=== PATIENT | male | born 1960 | race African-American/Black ===

== ENCOUNTER 2017-01-05 12:31 | Emergency (ER) | payer OTHER ==
[~2017-01-05] VITALS: Ht 190.5 cm; Wt 80.0 kg
[~2017-01-05 12:31] MED LIST: ASPI81TA3 PO; CARV25TA79 PO; HYDR-3672 PO; LINA5TAB PO; ONDA4TAB8 PO
[2017-01-05 12:34] VITALS: Ht 190.5 cm; Wt 80.0 kg
[2017-01-05] MEDS ORDERED: ONDANSETRON (ODT) 4 MG TAB ODT STA (15:10)
[2017-01-05] MEDS ORDERED: IBUPROFEN 600 MG TAB PO ONE (15:30)
--- NOTE | 2017-01-05 15:51 | RADRPT ---
PROCEDURE: XR Left Scapula CLINICAL INDICATION: Pain after fall TECHNIQUE: An AP and a lateral view of the left scapula were submitted. COMPARISON: None FINDINGS: Osseous structures: appear well mineralized and intact with no fracture or destructive process iden tified. Moderate degenerative thoracic spine changes are noted. Joint spaces: The glenohumeral joint appears unremarkable. The AC joint appears normal. Soft tissues: appear unremarkable. IMPRESSION: 1. Unremarkable left scapula 2. Moderate degenerative thoracic spine changes are noted. Physician Beltran Date Time Electronically viewed and signed by Nelson Ag Physician on 01/05/2017 15:51 RH/
--- NOTE | 2017-01-05 15:53 | RADRPT ---
PROCEDURE: XR Chest AP portable CLINICAL INDICATION: Pain after fall TECHNIQUE: An AP portable radiograph of the chest was submitted. COMPARISON: 06/03/2016 FINDINGS: Support Hardware: None Cardiovascular: The cardiovascular silhouette appears unremarkable. Lung Grant: The lung grant appear clear with no nodule, alveolar infiltrate, or interstitial promi nence evident. Pleural Spaces: No pneumothorax or pleural effusion is identified. Osseous Structures: Moderate diffuse degenerative thoracic spine changes are noted. Soft Tissues: The soft tissues appear unremarkable. IMPRESSION: 1. Degenerative thoracic spine changes are again seen diffusely. 2. Otherwise, stable and unremarkable portable chest. Physician Beltran Date Time Electronically viewed and signed by Physician Beltran on 01/05/2017 15:52 /
[2017-01-05] MEDS ORDERED: IBUP-1542 PO (16:22)
[2017-01-05] MEDS ORDERED: ONDA-43 PO (16:22)
[2017-01-05] MEDS ORDERED: HYDR-842 PO (16:23)
--- NOTE | 2017-01-05 16:30 | ERD ---
ER Documentation Chief Complaint Date/Time DATE: 01/05/17 TIME: 16:26 Chief Complaint VOMITTING, DENIES ABD PAIN; BACK PAIN- FELL 2 DAYS AGO HPI This is a 56-year-old male presents to the ER with multiple complaints. Patient states that he has had nausea vomiting and diarrhea since yesterday. Vomiting is nonbilious nonbloody. He is also complaining of insomnia. Patient fell onto his back 2 days ago and hurt his upper back. He is now complaining of left scapular pain. Patient denies any chest pain, shortness of breath, abdominal pain, fevers or chills. ROS 12 point review of systems was done, all negative except per HPI. Medications Home Meds Active Scripts Hydroxyzine Hcl* (Atarax*) 25 Mg Tab, 25 MG PO Q6H Y for ITCHING for 3 Days, TAB Prov:ADAM SIBLEY 01/05/17 Ibuprofen* (Motrin*) 600 Mg Tab, 600 MG PO Q6, #30 TAB Prov:ADAM SIBLEY 01/05/17 Ondansetron Hcl* (Zofran*) 4 Mg Tab, 4 MG PO Q4H Y for NAUSEA AND OR VOMITING for 5 Days, TAB Prov:ADAM SIBLEY 01/05/17 Aspirin (Aspirin) 81 Mg Chew, 81 MG PO DAILY for 30 Days, TAB 3 Refills Prov:KAILASH STEPHENS 06/04/16 Ondansetron Hcl* (Zofran*) 4 Mg Tablet, 4 MG PO Q8H Y for NAUSEA AND/OR VOMITING , #30 TAB Prov:BRENDA CANAS MD 05/31/16 Reported Medications Linagliptin (TRADJENTA) 5 Mg Tablet, 5 MG PO DAILY, TAB 05/31/16 Carvedilol* (Carvedilol*) 25 Mg Tablet, 25 MG PO BID, #60 TAB 05/31/16 Hydralazine Hcl* (Hydralazine Hcl*) 50 Mg Tab, 50 MG PO TID, TAB 11/19/14 Allergies Allergies: Coded Allergies: No Known Allergy (Verified , 06/03/16) PMhx/Soc History of Surgery: Yes Anesthesia Reaction: No Hx Neurological Disorder: Yes (stroke) Hx Respiratory Disorders: No Hx Cardiac Disorders: Yes (htn) Hx Psychiatric Problems: Yes (schizoprenia, paranoid type) Hx Miscellaneous Medical Probl: No (DM, diabetic neuropathy, HTN, CKD, 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 HEENT: Atraumatic CHEST: Clear to auscultation bilaterally. There are no rales, wheezes or rhonchi. HEART: Regular rate and rhythm. No murmurs, clicks, rubs or gallops. ABDOMEN: Soft, nontender and nondistended. Good bowel sounds. No rebound or guarding. No gross peritonitis. No gross organomegaly or masses. No English sign or McBurney point tenderness. BACK: No midline or flank tenderness. EXTREMITIES: Patient is tender to palpation along the left scapula. He has normal full range of motion of the shoulder. No deformities, no crepitus, no areas of ecchymosis. Negative drop arm test. Vascularly intact. NEURO: Alert and oriented. Results 24 hrs Current Medications Medications (Trade) Dose Ordered Sig/Denia Route PRN Reason Start Time Stop Time Status Last Admin Dose Admin Ondansetron HCl (Zofran Odt) 4 mg ONCE STAT ODT 01/05/17 15:10 01/05/17 15:12 DC 01/05/17 15:16 Ibuprofen (Motrin) 600 mg ONCE ONCE PO 01/05/17 15:30 01/05/17 15:31 DC 01/05/17 15:15 Procedures/MDM This is a 56-year-old male presents to the ER with multiple complaints. Patient did fall and hit the upper left side of his back, there is no evidence of fracture or dislocation on x-ray. Patient also has nausea vomiting and diarrhea this is likely viral in etiology. Patient does not appear dehydrated he is afebrile and is able to tolerate p.o. fluids. Suspicion for acute abdomen is low as he denies any abdominal pain. Patient will be sent home with Zofran, and ibuprofen. Patient is to follow-up with his primary care doctor within 1-2 days return to ER sooner if symptoms worsen. My medical decision making shared with the patient he understands and agrees with plan. Departure Diagnosis: Primary Impression: Back pain Additional Impression: Nausea vomiting and diarrhea Condition: Stable Patient Instructions: Back Pain (Acute Or Chronic) Additional Instructions: Call your primary care doctor TOMORROW for an appointment during the next 1-2 days.See the doctor sooner or return here if your condition worsens before your appointment time. ADAM SIBLEY Jan 05, 2017 16:30
== END 2017-01-05 16:29 | disposition home or self-care (01) ==
LOC: FTE 12:31
DX: M54.9 Dorsalgia, unspecified (principal); R11.2 Nausea with vomiting, unspecified; R19.7 Diarrhea, unspecified; E11.9 Type 2 diabetes mellitus without complications; I12.9 Hypertensive chronic kidney disease with stage 1 through stage 4 chronic kidney disease, or unspecified chronic kidney disease; N18.9 Chronic kidney disease, unspecified; Z79.84 Long term (current) use of oral hypoglycemic drugs; Z79.82 Long term (current) use of aspirin
CPT/HCPCS: 71010; 73010

== ENCOUNTER 2017-02-04 12:07 | Inpatient (IN) | payer OTHER ==
[~2017-02-04] VITALS: Ht 182.9 cm; Wt 89.0 kg
[~2017-02-04 12:07] MED LIST changes: +HYDR-842 PO; +IBUP-1542 PO; +ONDA-43 PO
[2017-02-04 12:18] VITALS: Ht 182.9 cm; Wt 89.0 kg
[2017-02-04] MEDS ORDERED: SOD CHLORIDE 0.9% 1,000 ML IV STA (12:56)
[2017-02-04 13:27] LABS: ADD SCAN DIFF NO
[2017-02-04 13:33] LABS: BASOPHILS % 0.3 % (0.0-2.0); EOSINOPHILS # 0.1 10^3/ul (0.0-0.5); EOSINOPHILS % 1.8 % (0.0-7.0); LYMPHOCYTES # 1.6 10^3/ul (0.8-2.9); LYMPHOCYTES % 39.3 % (15.0-51.0); MEAN CORPUSCULAR HEMOGLOBIN 26.2 pg (29.0-33.0); MEAN CORPUSCULAR HGB CONC 32.1 g/dl (32.0-37.0); MEAN CORPUSCULAR VOLUME 81.4 fl (82.0-101.0); MEAN PLATELET VOLUME 10.7 fl (7.4-10.4); MONOCYTE # 0.6 10^3/ul (0.3-0.9); MONOCYTES % 14.5 % (0.0-11.0); NEUTROPHIL # 1.8 10^3/ul (1.6-7.5); NEUTROPHILS % 43.8 % (39.0-77.0); PLATELET COUNT 166 10^3/UL (140-415); RED BLOOD COUNT 3.44 10^6/ul (4.70-6.10); RED CELL DISTRIBUTION WIDTH 13.3 % (11.5-14.5)
[2017-02-04 13:49] LABS: ANION GAP 20 (8-16); BLOOD UREA NITROGEN 55 mg/dl (7-20); CALCIUM 9.1 mg/dl (8.4-10.2); CARBON DIOXIDE 23 mmol/L (21-31); CHLORIDE 100 mmol/L (97-110); CREATININE 5.69 mg/dl (0.61-1.24); GLUCOSE 97 mg/dl (70-220); POTASSIUM 5.4 mmol/L (3.5-5.1); SODIUM 138 mmol/L (135-144)
[2017-02-04 14:02] LABS: TROPONIN-I < 0.012 ng/ml (0.00-0.12)
[2017-02-04] MEDS ORDERED: HYDR100T7 PO (15:45)
[2017-02-04] MEDS ORDERED: AMLO5TAB4 PO (15:45)
[2017-02-04] MEDS ORDERED: PROM25TA14 PO (15:46)
[2017-02-04] MEDS ORDERED: LOVA40TA64 PO (15:47)
[2017-02-04 16:21] LABS: ADD UMIC YES; UR ASCORBIC ACID NEGATIVE (NEGATIVE); UR BILIRUBIN (Dip) NEGATIVE (NEGATIVE); UR BLOOD (Dip) NEGATIVE (NEGATIVE); UR CLARITY CLEAR (CLEAR); UR COLOR YELLOW (YELLOW); UR GLUCOSE (Dip) NEGATIVE (NEGATIVE); UR KETONES (Dip) NEGATIVE (NEGATIVE); UR LEUKOCYTE ESTERASE (Dip) NEGATIVE Leu/ul (NEGATIVE); UR NITRITE (Dip) NEGATIVE (NEGATIVE); UR RBC 2 /HPF (0-5); UR TOTAL PROTEIN (Dip) 2+ mg/dl (NEGATIVE); UR UROBILINOGEN (Dip) NEGATIVE (NEGATIVE)
--- NOTE | 2017-02-04 17:16 | RADRPT ---
PROCEDURE: CT Head without. CLINICAL INDICATION: Headache, altered level of consciousness. History of CVA. TECHNIQUE: The study was performed utilizing a multi-slice, multidetector CT scanner. Direct spira l 1 mm axial sections were obtained through the head without the use of intravenous contrast materia l. 1 or more of the following dose reduction techniques were utilized: Automated exposure control, adjustment of the mA and/or kV according to patient's size, iterative reconstruction technique. Co jenny and sagittal reformations were obtained. The images were reviewed on a PACS workstation. RADIATION DOSE: CTDIvol: 43.1 mGyDLP: 823.6 mGy-cm COMPARISON: 06/03/2016, 05/31/2016, 07/13/2015, MRI brain 06/03/2016 FINDINGS: There is no intracranial hemorrhage, extra-axial fluid collection, mass lesion, midline shift or hyd rocephalus. There is mild to moderate prominence of the cerebral sulci, lateral and third ventricle s. There is well-circumscribed encephalomalacia involving the left sub insular white matter, relate d to remote prior infarct. There is suggestion of encephalomalacia involving the left caudate lobe suggestive of prior remote lacunar infarct. There is circumscribed encephalomalacia involving the r ight caudate/internal capsule consistent with remote prior lacunar infarct. There is moderate patch y and confluent periventricular and subcortical white matter hypodensity. There is mild arterioscle rotic calcification of the parasellar internal carotid arteries. The lu-white matter differentiat ion is preserved. The basal cisterns are patent. The midline structures are intact. There is pneu matization of the bilateral petrous apices without evidence of inflammatory changes, normal variant. The orbits, calvarium and extracranial soft tissues are normal in appearance. The visualize d paranasal sinuses, mastoid air cells and middle ear cavities are normally aerated. IMPRESSION: 1. No significant interval change compared to 06/03/2016. No acute intracranial abnormality. No i ntracranial hemorrhage, extra-axial fluid collection, mass lesion or hydrocephalous. 2. Stable appearance of remote lacunar infarcts involving the left caudate, left sub insular white matter and right basal ganglia. No definite acute infarcts are seen. 3. No CT evidence of infarct at this time. If clinical concern for infarct, MRI is recommended for further evaluation. 4. Mild to moderate peripheral and central cerebral volume loss. 5. Moderate patchy periventricular and subcortical white matter hypodensity, likely related to brick catcher alex microangiopathic changes. RPTAT: HGAS .Burt Bautista MD, Date Time Electronically viewed and signed by .Burt Bautista MD, on 02/04/2017 17:15 .S/
--- NOTE | 2017-02-04 20:08 | ERA ---
ER Documentation Chief Complaint Date/Time DATE: 02/04/17 TIME: 20:02 Chief Complaint feels dizzy with bs 215 per pt HPI This 56-year-old male comes to the ER with nonspecific symptoms of feeling lightheaded and "not like himself:. States he has had some mild confusion. He denies any shortness of breath or chest pain. He has had no fevers and chills. He does not have any specific pain. ROS All systems reviewed and are negative except as per history of present illness. Medications Home Meds Reported Medications Lovastatin* (Altoprev*) 40 Mg Tab.sr.24h, 40 MG PO HS, TAB 02/04/17 Promethazine Hcl* (Phenergan*) 25 Mg Tablet, 25 MG PO Q8H, TAB 02/04/17 Hydralazine Hcl* (Hydralazine Hcl*) 100 Mg Tablet, 100 MG PO Q8, #90 TAB 02/04/17 Amlodipine Besylate* (Norvasc*) 5 Mg Tablet, 5 MG PO DAILY, TAB 02/04/17 Linagliptin (TRADJENTA) 5 Mg Tablet, 5 MG PO DAILY, TAB 05/31/16 Carvedilol* (Carvedilol*) 25 Mg Tablet, 25 MG PO BID, #60 TAB 05/31/16 Discontinued Reported Medications Hydralazine Hcl* (Hydralazine Hcl*) 50 Mg Tab, 50 MG PO TID, TAB 11/19/14 Discontinued Scripts Hydroxyzine Hcl* (Atarax*) 25 Mg Tab, 25 MG PO Q6H Y for ITCHING for 3 Days, TAB Prov:ADAM SIBLEY 01/05/17 Ibuprofen* (Motrin*) 600 Mg Tab, 600 MG PO Q6, #30 TAB Prov:ADAM SIBLEY 01/05/17 Ondansetron Hcl* (Zofran*) 4 Mg Tab, 4 MG PO Q4H Y for NAUSEA AND OR VOMITING for 5 Days, TAB Prov:ADAM SIBLEY 01/05/17 Aspirin (Aspirin) 81 Mg Chew, 81 MG PO DAILY for 30 Days, TAB 3 Refills Prov:KAILASH STEPHENS 06/04/16 Ondansetron Hcl* (Zofran*) 4 Mg Tablet, 4 MG PO Q8H Y for NAUSEA AND/OR VOMITING , #30 TAB Prov:BRENDA CANAS MD 05/31/16 Allergies Allergies: Coded Allergies: No Known Allergy (Verified , 02/04/17) PMhx/Soc History of Surgery: Yes Anesthesia Reaction: No Hx Neurological Disorder: Yes (stroke) Hx Respiratory Disorders: No Hx Cardiac Disorders: Yes (htn) Hx Psychiatric Problems: Yes (schizoprenia, paranoid type) Hx Miscellaneous Medical Probl: No (DM, diabetic neuropathy, HTN, CKD, 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 Neck: Full range of motion..~ No meningismus. Resp: Clear to auscultation bilaterally Cardio: Regular rate and rhythm, no murmurs Abd: Soft, non tender, non distended. Normal bowel sounds Skin: No petechiae or rashes Back: No midline or flank tenderness Ext: No cyanosis, or edema, distal pulses intact all 4 extremities Neur: Awake and alert and oriented 3, cranial nerves II through XII intact, no cerebellar deficits, 5 out of 5 strength of all extremities Psych: Normal Mood and Affect Result Diagram: 02/04/17 1310 02/04/17 1310 Results 24 hrs Laboratory Tests Test 02/04/17 13:10 02/04/17 15:40 White Blood Count 4.010^3/ul Red Blood Count 3.4410^6/ul Hemoglobin 9.0g/dl Hematocrit 28.0% Mean Corpuscular Volume 81.4fl Mean Corpuscular Hemoglobin 26.2pg Mean Corpuscular Hemoglobin Concent 32.1g/dl Red Cell Distribution Width 13.3% Platelet Count 27865^3/UL Mean Platelet Volume 10.7fl Neutrophils % 43.8% Lymphocytes % 39.3% Monocytes % 14.5% Eosinophils % 1.8% Basophils % 0.3% Nucleated Red Blood Cells % 0.0/100WBC Neutrophils # 1.810^3/ul Lymphocytes # 1.610^3/ul Monocytes # 0.610^3/ul Eosinophils # 0.110^3/ul Basophils # 0.010^3/ul Nucleated Red Blood Cells # 0.010^3/ul Sodium Level 138mmol/L Potassium Level 5.4mmol/L Chloride Level 100mmol/L Carbon Dioxide Level 23mmol/L Anion Gap 20 Blood Urea Nitrogen 55mg/dl Creatinine 5.69mg/dl Glucose Level 97mg/dl Calcium Level 9.1mg/dl Troponin I < 0.012ng/ml Lipase 145U/L Thyroid Stimulating Hormone (TSH) 1.300MIU/L Urine Color YELLOW Urine Clarity CLEAR Urine pH 6.0 Urine Specific [place] 1.010 Urine Ketones NEGATIVEmg/dL Urine Nitrite NEGATIVEmg/dL Urine Bilirubin NEGATIVEmg/dL Urine Urobilinogen NEGATIVEmg/dL Urine Leukocyte Esterase NEGATIVELeu/ul Urine Microscopic RBC 2/HPF Urine Microscopic WBC 1/HPF Urine Hemoglobin NEGATIVEmg/dL Urine Glucose NEGATIVEmg/dL Urine Total Protein 2+mg/dl Current Medications Medications (Trade) Dose Ordered Sig/Denia Route PRN Reason Start Time Stop Time Status Last Admin Dose Admin Sodium Chloride (NS) 1,000 ml @ 1,000 mls/hr Q1H STAT IV 02/04/17 12:56 02/04/17 13:55 DC 02/04/17 13:13 Procedures/MDM Acute on chronic renal failure with over doubling of his previous elevated creatinine level of 2.68 on prior visit. Patient has not used this level of BUN he may also be having symptoms of uremia. No other acute cause such as infection is found for his symptoms. I have very low suspicion for cerebrovascular accident as the patient has no focal weakness or slurred speech. Attempted to call his primary care doctor Dr. Wong, spoke with his partner Dr. Caraballo, who suggested the patient be admitted. For insurance reasons the patient's insurance is [employer] he is admitted to the regular group. I spoke with . his son who agreed to the admission. Patient was given 2 L of fluid as well as 30 mg of Kayexalate p.o. he will be admitted for assessment for possible need for initiation of acute dialysis. He has no EKG changes from the hyperkalemia. EKG interpretation: Sinus rhythm at 65, normal axis, no ST or T-wave changes concerning for acute ischemia, normal intervals. playground monitor interpretation: Normal sinus rhythm without arrhythmia Head CT interpretation: I see no acute process. Old infarcts. I see no hemorrhage, no mass-effect no midline shift, no skull fracture Chest x-ray: X-ray is pending and reason order is for assessment of possible fluid overload as the patient's renal function is decreasing Departure Diagnosis: Primary Impression: Acute kidney injury Additional Impressions: Acute uremia Lightheadedness Hyperkalemia EDDIE CARRANZA DO Feb 04, 2017 20:08
[2017-02-04] MEDS ORDERED: SOD CHLORIDE 0.9% 1,000 ML IV ONE ×2 (20:30→23:00)
[2017-02-04] MEDS ORDERED: NA POLYST SULFON 15 GM/60 ML BTL PO ONE (20:30)
[2017-02-04] MEDS ORDERED: ACETAMINOPHEN 325 MG TAB PO PRN (20:30)
[2017-02-04] MEDS ORDERED: ONDANSETRON 4 MG INJ IV PRN ×2 (20:30→23:00)
[2017-02-04 21:15] VITALS: BP 145/67; PULSE 69; RESP 20
--- NOTE | 2017-02-04 21:45 | RADRPT ---
PROCEDURE: XR Chest. CLINICAL INDICATION: Renal failure with possible fluid overload. TECHNIQUE: 2 frontal views of the chest. COMPARISON: 01/05/2017. FINDINGS: The cardiomediastinal silhouette is within normal limits. The lungs are clear. No signs of pleural f luid or pneumothorax are seen. The osseous structures and soft tissues are unremarkable. IMPRESSION: No evidence for active cardiopulmonary disease. RPTAT: [facility] Physician [place] Date Time Electronically viewed and signed by Nelson Vilchis Physician on 02/04/2017 21:45 RS/
[2017-02-04] MEDS ORDERED: GLUCAGON 1 MG INJ IM PRN (23:00)
[2017-02-04] MEDS ORDERED: GLUCOSE GEL 15 GRAM TUBE BUCCAL PRN (23:00)
[2017-02-04] MEDS ORDERED: ZOLPIDEM 5 MG TAB PO PRN (23:00)
[2017-02-04] MEDS ORDERED: DEXTROSE 50% 50 ML SYRINGE IV PRN ×2 (23:00)
[2017-02-04] MEDS ORDERED: GLUCOSE GEL 15 GRAM TUBE PO PRN ×2 (23:00)
[2017-02-05] MEDS: SOD CHLORIDE 0.9% 1,000 ML IV SCH ×3 (01:00→18:52)
[2017-02-05] MEDS: ACCU-CHEK XX SCH ×2 (02:00→23:48)
[2017-02-05] MEDS: PANTOPRAZOLE (EC) 40 MG TAB PO SCH (05:32)
[2017-02-05 05:36] LABS: ADD SCAN DIFF NO
[2017-02-05 05:41] LABS: BASOPHILS % 0.3 % (0.0-2.0); EOSINOPHILS % 0.5 % (0.0-7.0); HEMATOCRIT 28.6 % (42.0-52.0); HEMOGLOBIN 8.8 g/dl (14.0-18.0); LYMPHOCYTES # 1.5 10^3/ul (0.8-2.9); LYMPHOCYTES % 38.2 % (15.0-51.0); MEAN CORPUSCULAR HEMOGLOBIN 25.4 pg (29.0-33.0); MEAN CORPUSCULAR HGB CONC 30.8 g/dl (32.0-37.0); MEAN CORPUSCULAR VOLUME 82.7 fl (82.0-101.0); MEAN PLATELET VOLUME 11.4 fl (7.4-10.4); MONOCYTE # 0.5 10^3/ul (0.3-0.9); MONOCYTES % 12.7 % (0.0-11.0); NEUTROPHIL # 1.9 10^3/ul (1.6-7.5); PLATELET COUNT 172 10^3/UL (140-415); RED BLOOD COUNT 3.46 10^6/ul (4.70-6.10); RED CELL DISTRIBUTION WIDTH 13.4 % (11.5-14.5); WHITE BLOOD COUNT 3.9 10^3/ul (4.8-10.8)
[2017-02-05 06:01] LABS: ALBUMIN 3.8 g/dl (3.3-4.9); ALBUMIN/GLOBULIN RATIO 1.35; CALCIUM 8.7 mg/dl (8.4-10.2); CHOL/HDL RATIO 2.5 RATIO; CREATININE 4.96 mg/dl (0.61-1.24); MAGNESIUM 1.9 mg/dl (1.7-2.5); PHOSPHORUS 4.4 mg/dl (2.5-4.9); POTASSIUM 4.5 mmol/L (3.5-5.1); TOTAL PROTEIN 6.6 g/dl (6.1-8.1)
[2017-02-05] MEDS: INSULIN ASPART [NOVOLOG] 3 ML PEN SC SCH ×4 (08:00→20:59)
[2017-02-05 08:20] VITALS: BP 151/77; RESP 20
--- NOTE | 2017-02-05 08:44 | CONS ---
Date/Time of Note Date/Time of Note DATE: 02/05/17 TIME: 08:43 Assessment/Plan Assessment/Plan Additional Assessment/Plan 1. 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 did not follow up with him, admitted to [facility] for worsenign renal failure, his K was high, Bp stable, no nausea, no vomiting, no abd pain given kayexalate, and admitted to floor, renal has been consutle for MANNIE on CKD and Hyperkalemia c/o generalized weakness, leg cramps, BP stable, no other complaints Past Medical History Medical History: diabetes, high cholesterol, hypertension, hypothyroid Past Surgical History Past Surgical Hx: no surgical history Family History Significant Family History: no pertinent family hx Social History Alcohol Use: none Smoking Status: Former smoker Drug Use: none Exam/Review of Systems Vital Signs Vitals Vital Signs Date Time Temp Pulse Resp B/P Pulse Ox O2 Delivery O2 Flow Rate FiO2 02/05/17 08:20 97.5 78 20 151/77 98 02/04/17 21:15 Room Air Intake and Output 02/04/17 02/04/17 02/05/17 15:00 23:00 07:00 Intake Total 2000 ml Output Total 800 ml Balance 1200 ml Exam Constitutional: alert Psych: no complaints Head: normocephalic Eyes: nl conjunctiva ENMT: nl external ears & nose Neck: supple Respiratory: clear to auscultation, normal air movement Cardiovascular: nl pulses, regular rate and rhythm Gastrointestinal: non-tender, soft Musculoskeletal: nl extremities to inspection Extremities: normal pulses Neurological: TIMBER TRIMMER II-XII intact Skin: nl turgor Lymph: nl lymph nodes Results Result Diagram: 02/05/17 0510 02/05/17 0510 Results 24 hrs Laboratory Tests Test 02/04/17 13:10 02/04/17 15:40 02/04/17 21:26 02/05/17 05:10 White Blood Count 4.0 L 3.9 L Red Blood Count 3.44 L 3.46 L Hemoglobin 9.0 L 8.8 L Hematocrit 28.0 L 28.6 L Mean Corpuscular Volume 81.4 L 82.7 Mean Corpuscular Hemoglobin 26.2 L 25.4 L Mean Corpuscular Hemoglobin Concent 32.1 30.8 L Red Cell Distribution Width 13.3 13.4 Platelet Count 166 172 Mean Platelet Volume 10.7 H 11.4 H Neutrophils % 43.8 48.0 Lymphocytes % 39.3 38.2 Monocytes % 14.5 H 12.7 H Eosinophils % 1.8 0.5 Basophils % 0.3 0.3 Nucleated Red Blood Cells % 0.0 0.0 Neutrophils # 1.8 1.9 Lymphocytes # 1.6 1.5 Monocytes # 0.6 0.5 Eosinophils # 0.1 0.0 Basophils # 0.0 0.0 Nucleated Red Blood Cells # 0.0 0.0 Sodium Level 138 143 Potassium Level 5.4 H 4.5 Chloride Level 100 107 Carbon Dioxide Level 23 24 Anion Gap 20 H 17 H Blood Urea Nitrogen 55 H 47 H Creatinine 5.69 H 4.96 H Glucose Level 97 115 Calcium Level 9.1 8.7 Troponin I < 0.012 Lipase 145 Thyroid Stimulating Hormone (TSH) 1.300 Urine Color YELLOW Urine Clarity CLEAR Urine pH 6.0 Urine Specific [place] 1.010 Urine Ketones NEGATIVE Urine Nitrite NEGATIVE Urine Bilirubin NEGATIVE Urine Urobilinogen NEGATIVE Urine Leukocyte Esterase NEGATIVE Urine Microscopic RBC 2 Urine Microscopic WBC 1 Urine Hemoglobin NEGATIVE Urine Glucose NEGATIVE Urine Total Protein 2+ H Bedside Glucose 148 Phosphorus Level 4.4 Magnesium Level 1.9 Total Bilirubin 0.0 L Direct Bilirubin 0.00 Indirect Bilirubin 0.0 Aspartate Amino Transf (AST/SGOT) 29 Alanine Aminotransferase (ALT/SGPT) 43 Alkaline Phosphatase 58 Total Protein 6.6 Albumin 3.8 Globulin 2.80 Albumin/Globulin Ratio 1.35 Triglycerides Level 125 Cholesterol Level 137 LDL Cholesterol, Calculated 59 HDL Cholesterol 53 Cholesterol/HDL Ratio 2.5 Test 02/05/17 08:11 Bedside Glucose 110 Medications Medications Current Medications Diagnostic Test (Pha) 1 ea 1 ea 02 XX ; Start 02/05/17 at 02:00 Sodium Chloride (NS) 1,000 ml @ 0 mls/hr Q0M IV Last administered on 02/05/17 08:14; Admin Dose 150 MLS/HR; Start 02/04/17 at 23:00 Zolpidem Tartrate (Ambien) 5 mg HS PRN PO INSOMNIA; Start 02/04/17 at 23:00 Ondansetron HCl (Zofran Inj) 4 mg Q6H PRN IV NAUSEA AND/OR VOMITING; Start 02/04 at 23:00 Pantoprazole (Protonix Tab) 40 mg DAILY@06 PO Last administered on 02/05/17 05: 32; Admin Dose 40 MG; Start 02/05/17 at 06:00 Amlodipine Besylate (Norvasc) 5 mg DAILY PO ; Start 02/05/17 at 09:00 Carvedilol (Coreg) 25 mg BID PO ; Start 02/05/17 at 09:00 Hydralazine HCl (Apresoline) 100 mg Q8 PO Last administered on 02/05/17 05:32; Admin Dose 100 MG; Start 02/05/17 at 06:00 Atorvastatin Calcium (Lipitor) 10 mg DAILY@21 PO ; Start 02/05/17 at 21:00 Miscellaneous Information 1 ea NOTE XX ; Start 02/04/17 at 23:00 Glucose (Glutose) 15 gm Q15M PRN PO DECREASED GLUCOSE; Start 02/04/17 at 23:00 Glucose (Glutose) 22.5 gm Q15M PRN PO DECREASED GLUCOSE; Start 02/04/17 at 23:00 Dextrose (D50w Syringe) 25 ml Q15M PRN IV DECREASED GLUCOSE; Start 02/04/17 at 23:00 Dextrose (D50w Syringe) 50 ml Q15M PRN IV DECREASED GLUCOSE; Start 02/04/17 at 23:00 Glucagon (Glucagen) 1 mg Q15M PRN IM DECREASED GLUCOSE; Start 02/04/17 at 23:00 Glucose (Glutose) 15 gm Q15M PRN BUCCAL DECREASED GLUCOSE; Start 02/04/17 at 23: 00 KENNY NOEL MD Feb 05, 2017 08:44
[2017-02-05] MEDS: AMLODIPINE 5 MG TAB PO SCH (10:27)
--- NOTE | 2017-02-05 11:34 | QN ---
Documentation Comment H&P dict a/p 1. acute on chronic renal failure, await us., cont hydration 2. dm 3, htn 4. increase activity ELZBIETA MAYO MD Feb 05, 2017 11:34
--- NOTE | 2017-02-05 13:13 | RADRPT ---
PROCEDURE: Retroperitoneal US. CLINICAL INDICATION: Renal insufficiency TECHNIQUE: Multiple sonographic images of the kidneys and retroperitoneum were obtained. The imag es were reviewed on a PACS workstation. COMPARISON: No prior studies are available for comparison. FINDINGS: The right kidney measures 9.4 cm. The left kidney measures 10.3 cm. There is increased echogenicity of the kidneys. There is no evidence of hydronephrosis. The urinary bladder is normal. The prostate measures 5.3 x 3.5 cm. IMPRESSION: Echogenic kidneys, consistent with medical renal disease. No evidence of hydronephrosis. RPTAT: AA .Giovanny Hernandez MD, MD Date Time Electronically viewed and signed by .Giovanny Hernandez MD, on 02/05/2017 13:12 .S/
[2017-02-05 14:12] VITALS: BP 152/78; RESP 18
[2017-02-05] MEDS ORDERED: ATORVASTATIN 10 MG TAB PO SCH (21:00)
[2017-02-05 21:06] VITALS: BP 165/92; RESP 20
[2017-02-06] MEDS: SOD CHLORIDE 0.9% 1,000 ML IV SCH ×2 (01:11→09:02)
[2017-02-06 02:00] VITALS: BP 158/86; RESP 18
[2017-02-06 02:13] VITALS: BP 159/86; PULSE 70; RESP 18
[2017-02-06 05:01] LABS: ADD SCAN DIFF NO
[2017-02-06 05:08] LABS: BASOPHILS % 0.2 % (0.0-2.0); EOSINOPHILS # 0.1 10^3/ul (0.0-0.5); EOSINOPHILS % 1.7 % (0.0-7.0); HEMATOCRIT 28.3 % (42.0-52.0); HEMOGLOBIN 8.8 g/dl (14.0-18.0); LYMPHOCYTES # 1.7 10^3/ul (0.8-2.9); LYMPHOCYTES % 42.3 % (15.0-51.0); MEAN CORPUSCULAR HEMOGLOBIN 25.5 pg (29.0-33.0); MEAN CORPUSCULAR HGB CONC 31.1 g/dl (32.0-37.0); MEAN PLATELET VOLUME 11.1 fl (7.4-10.4); MONOCYTE # 0.4 10^3/ul (0.3-0.9); MONOCYTES % 10.8 % (0.0-11.0); NEUTROPHIL # 1.8 10^3/ul (1.6-7.5); NEUTROPHILS % 44.8 % (39.0-77.0); PLATELET COUNT 160 10^3/UL (140-415); RED BLOOD COUNT 3.45 10^6/ul (4.70-6.10); RED CELL DISTRIBUTION WIDTH 13.3 % (11.5-14.5); WHITE BLOOD COUNT 4.1 10^3/ul (4.8-10.8)
[2017-02-06] MEDS: PANTOPRAZOLE (EC) 40 MG TAB PO SCH (05:23)
[2017-02-06 05:41] LABS: CALCIUM 8.6 mg/dl (8.4-10.2); CREATININE 4.42 mg/dl (0.61-1.24); POTASSIUM 4.3 mmol/L (3.5-5.1)
[2017-02-06] MEDS: INSULIN ASPART [NOVOLOG] 3 ML PEN SC SCH ×3 (08:00→17:13)
[2017-02-06 08:38] VITALS: BP 163/80; RESP 18
[2017-02-06] MEDS: AMLODIPINE 5 MG TAB PO SCH (08:59)
--- NOTE | 2017-02-06 12:51 | PN ---
Date/Time of Note Date/Time of Note DATE: 02/06/17 TIME: 12:47 Assessment/Plan VTE Prophylaxis VTE Prophylaxis Intervention: ambulation Lines/Catheters IV Catheter Type (from Nrs): Peripheral IV Central line still needed: No Urinary Cath still in place: No Assessment/Plan Assessment/Plan 1. renal: progression of chronic kidney disease, appreciate renal consult plan d/c home today if patient is safe with ambulation Subjective 24 Hr Interval Summary Free Text/Dictation no complaints, wants to go home states that he has been walking Exam/Review of Systems Vital Signs Vitals Vital Signs Date Time Temp Pulse Resp B/P Pulse Ox O2 Delivery O2 Flow Rate FiO2 02/06/17 08:38 97.8 71 18 163/80 99 02/04/17 21:15 Room Air Intake and Output 02/05/17 02/05/17 02/06/17 14:59 22:59 06:59 Intake Total 400 ml 2790 ml 2300 ml Output Total 1700 ml 2500 ml Balance 400 ml 1090 ml -200 ml Exam nad, ctab, rrr, soft nt, able to stand with out assist Results Result Diagram: 02/06/17 0450 02/06/17 0450 Results 24 hrs Laboratory Tests Test 02/05/17 17:05 02/05/17 17:27 02/05/17 20:58 02/06/17 04:50 Urine Random Creatinine 36.57 Urine Random Sodium 138 H Urine Total Protein 100.0 H Bedside Glucose 121 119 White Blood Count 4.1 L Red Blood Count 3.45 L Hemoglobin 8.8 L Hematocrit 28.3 L Mean Corpuscular Volume 82.0 Mean Corpuscular Hemoglobin 25.5 L Mean Corpuscular Hemoglobin Concent 31.1 L Red Cell Distribution Width 13.3 Platelet Count 160 Mean Platelet Volume 11.1 H Neutrophils % 44.8 Lymphocytes % 42.3 Monocytes % 10.8 Eosinophils % 1.7 Basophils % 0.2 Nucleated Red Blood Cells % 0.0 Neutrophils # 1.8 Lymphocytes # 1.7 Monocytes # 0.4 Eosinophils # 0.1 Basophils # 0.0 Nucleated Red Blood Cells # 0.0 Sodium Level 140 Potassium Level 4.3 Chloride Level 104 Carbon Dioxide Level 24 Anion Gap 16 Blood Urea Nitrogen 43 H Creatinine 4.42 H Glucose Level 98 Calcium Level 8.6 Test 02/06/17 08:04 Bedside Glucose 111 Medications Medications Current Medications Diagnostic Test (Pha) 1 ea 1 ea 02 XX ; Start 02/05/17 at 02:00 Sodium Chloride (NS) 1,000 ml @ 0 mls/hr Q0M IV Last administered on 02/06/17 09:02; Admin Dose 150 MLS/HR; Start 02/04/17 at 23:00 Zolpidem Tartrate (Ambien) 5 mg HS PRN PO INSOMNIA; Start 02/04/17 at 23:00 Ondansetron HCl (Zofran Inj) 4 mg Q6H PRN IV NAUSEA AND/OR VOMITING; Start 02/04 at 23:00 Pantoprazole (Protonix Tab) 40 mg DAILY@06 PO Last administered on 02/06/17 05: 23; Admin Dose 40 MG; Start 02/05/17 at 06:00 Amlodipine Besylate (Norvasc) 5 mg DAILY PO Last administered on 02/06/17 08:59 ; Admin Dose 5 MG; Start 02/05/17 at 09:00 Carvedilol (Coreg) 25 mg BID PO Last administered on 02/06/17 08:59; Admin Dose 25 MG; Start 02/05/17 at 09:00 Hydralazine HCl (Apresoline) 100 mg Q8 PO Last administered on 02/06/17 05:23; Admin Dose 100 MG; Start 02/05/17 at 06:00 Atorvastatin Calcium (Lipitor) 10 mg DAILY@21 PO Last administered on 02/05/17 21:00; Admin Dose 10 MG; Start 02/05/17 at 21:00 Miscellaneous Information 1 ea NOTE XX ; Start 02/04/17 at 23:00 Glucose (Glutose) 15 gm Q15M PRN PO DECREASED GLUCOSE; Start 02/04/17 at 23:00 Glucose (Glutose) 22.5 gm Q15M PRN PO DECREASED GLUCOSE; Start 02/04/17 at 23:00 Dextrose (D50w Syringe) 25 ml Q15M PRN IV DECREASED GLUCOSE; Start 02/04/17 at 23:00 Dextrose (D50w Syringe) 50 ml Q15M PRN IV DECREASED GLUCOSE; Start 02/04/17 at 23:00 Glucagon (Glucagen) 1 mg Q15M PRN IM DECREASED GLUCOSE; Start 7/5/17 at 23:00 Glucose (Glutose) 15 gm Q15M PRN BUCCAL DECREASED GLUCOSE; Start 02/04/17 at 23: 00 ELZBIETA MAYO MD Feb 06, 2017 12:51
[2017-02-06] MEDS ORDERED: AMLO-147 PO (12:56)
--- NOTE | 2017-02-06 12:58 | PDOCDIS ---
Discharge Instructions CONDITION Patient Condition: Good HOME CARE INSTRUCTIONS: Special Diet: 2000 CCHO ACTIVITY: Activity Restrictions: Slowly Increase Activity FOLLOW UP/APPOINTMENTS Follow-up Plan 1. follow up with dr chika gibson in 1 week ELZBIETA MAYO MD Feb 06, 2017 12:58
[2017-02-06 14:26] VITALS: BP 165/94; RESP 20
--- NOTE | 2017-02-06 17:35 | PN ---
Date/Time of Note Date/Time of Note DATE: 02/06/17 TIME: 17:34 Assessment/Plan VTE Prophylaxis VTE Prophylaxis Intervention: SCD's Lines/Catheters IV Catheter Type (from Nrs): Peripheral IV Urinary Cath still in place: No Assessment/Plan Chief Complaint/Hosp Course 56 AAM with PMHX of HTN, HL possibel CKD who was following with Ent Nurse recently did not follow up with him, admitted to [facility] for worsenign renal failure, his K was high, Bp stable, no nausea, no vomiting, no abd pain given kayexalate, and admitted to floor, renal has been consutle for MANNIE on CKD and Hyperkalemia Problems: Assessment/Plan 1. 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 3.HL Plan; stable Cr, K stable ok to d/c home today follow up with me in clinic in 2 weeks Subjective 24 Hr Interval Summary Free Text/Dictation doing ok, BP sable, CR stable, no Hyperkalemia Exam/Review of Systems Vital Signs Vitals Vital Signs Date Time Temp Pulse Resp B/P Pulse Ox O2 Delivery O2 Flow Rate FiO2 02/06/17 14:26 98.4 70 20 165/94 98 02/04/17 21:15 Room Air Intake and Output 02/05/17 02/05/17 02/06/17 15:00 23:00 07:00 Intake Total 400 ml 2790 ml 2300 ml Output Total 1700 ml 2500 ml Balance 400 ml 1090 ml -200 ml Results Result Diagram: 02/06/17 0450 02/06/17 0450 Results 24 hrs Laboratory Tests Test 02/05/17 20:58 02/06/17 04:50 02/06/17 08:04 02/06/17 12:18 Bedside Glucose 119 111 220 White Blood Count 4.1 L Red Blood Count 3.45 L Hemoglobin 8.8 L Hematocrit 28.3 L Mean Corpuscular Volume 82.0 Mean Corpuscular Hemoglobin 25.5 L Mean Corpuscular Hemoglobin Concent 31.1 L Red Cell Distribution Width 13.3 Platelet Count 160 Mean Platelet Volume 11.1 H Neutrophils % 44.8 Lymphocytes % 42.3 Monocytes % 10.8 Eosinophils % 1.7 Basophils % 0.2 Nucleated Red Blood Cells % 0.0 Neutrophils # 1.8 Lymphocytes # 1.7 Monocytes # 0.4 Eosinophils # 0.1 Basophils # 0.0 Nucleated Red Blood Cells # 0.0 Sodium Level 140 Potassium Level 4.3 Chloride Level 104 Carbon Dioxide Level 24 Anion Gap 16 Blood Urea Nitrogen 43 H Creatinine 4.42 H Glucose Level 98 Calcium Level 8.6 Test 02/06/17 17:12 Bedside Glucose 107 Medications Medications Current Medications Diagnostic Test (Pha) (Accu-Chek) 1 ea 02 XX ; Start 02/05/17 at 02:00 Zolpidem Tartrate (Ambien) 5 mg HS PRN PO INSOMNIA; Start 02/04/17 at 23:00 Ondansetron HCl (Zofran Inj) 4 mg Q6H PRN IV NAUSEA AND/OR VOMITING; Start 02/04 at 23:00 Pantoprazole (Protonix Tab) 40 mg DAILY@06 PO Last administered on 02/06/17 05: 23; Admin Dose 40 MG; Start 02/05/17 at 06:00 Carvedilol (Coreg) 25 mg BID PO Last administered on 02/06/17 08:59; Admin Dose 25 MG; Start 02/05/17 at 09:00 Hydralazine HCl (Apresoline) 100 mg Q8 PO Last administered on 02/06/17 14:43; Admin Dose 100 MG; Start 02/05/17 at 06:00 Atorvastatin Calcium (Lipitor) 10 mg DAILY@21 PO Last administered on 02/05/17 21:00; Admin Dose 10 MG; Start 02/05/17 at 21:00 Miscellaneous Information 1 ea NOTE XX ; Start 02/04/17 at 23:00 Glucose (Glutose) 15 gm Q15M PRN PO DECREASED GLUCOSE; Start 02/04/17 at 23:00 Glucose (Glutose) 22.5 gm Q15M PRN PO DECREASED GLUCOSE; Start 02/04/17 at 23:00 Dextrose (D50w Syringe) 25 ml Q15M PRN IV DECREASED GLUCOSE; Start 02/04/17 at 23:00 Dextrose (D50w Syringe) 50 ml Q15M PRN IV DECREASED GLUCOSE; Start 02/04/17 at 23:00 Glucagon (Glucagen) 1 mg Q15M PRN IM DECREASED GLUCOSE; Start 02/04/17 at 23:00 Glucose (Glutose) 15 gm Q15M PRN BUCCAL DECREASED GLUCOSE; Start 02/04/17 at 23: 00 Amlodipine Besylate (Norvasc) 10 mg DAILY PO ; Start 02/07/17 at 09:00 KENNY NOEL MD Feb 06, 2017 17:35
[2017-02-07] MEDS ORDERED: AMLODIPINE 10 MG TAB PO SCH (09:00)
--- NOTE | 2017-02-09 10:08 | HP ---
DATE OF ADMISSION: 02/04/2017 CHIEF COMPLAINT: Weakness. HISTORY OF PRESENT ILLNESS: The patient presents to the emergency room at [facility] with generalized weakness and difficulty walking. He states that this has been getting progressively worse over the last several days and has gotten to the point now where he is having difficulty walking even short distances with his leg not being cooperative and feeling too weak and like he has to lay down. He denies any associated chest pain, pressure or discomfort. Denies recent illness. Denies nausea, vomiting, diarrhea. PAST MEDICAL HISTORY: Significant for hypertension, diabetes, old strokes. MEDICATIONS: As an outpatient include: 1. Phenergan. 2. Norvasc 5 mg daily. 3. Coreg 25 mg b.i.d. 4. Hydralazine 100 mg q. 8 hours. 5. Lovastatin 40 mg daily. 6. Tradjenta 5 mg daily. ALLERGIES: NO KNOWN DRUG ALLERGIES. SOCIAL HISTORY: The patient lives at home in [place] by himself, is independent of activities of daily living. Denies tobacco, alcohol, illicit drug use. Does not use a cane or walker, is able to take the bus and do all of his own shopping. FAMILY HISTORY: Noncontributory. REVIEW OF SYSTEMS: Five systems reviewed and found not to be revealing. PHYSICAL EXAMINATION: VITAL SIGNS: Blood pressure is 151/77, pulse rate is 78, respirations 20, temperature is 97.5. GENERAL APPEARANCE: Pleasant man, in no acute distress. Alert and oriented x3. HEENT: Normocephalic, atraumatic without any scleral icterus, perioral cyanosis. Moist mucous membranes. NECK: Soft and supple without masses. No jugular venous distention or carotid bruits. CARDIAC: Clear to auscultation and percussion bilaterally. CARDIAC: Heart is of a regular rate and rhythm. S1/S2. No added sounds. ABDOMEN: Soft. Nontender, nondistended, without palpable hepatosplenomegaly. EXTREMITIES: Without cyanosis, clubbing or edema. SKIN: Without rashes. NEUROLOGIC: There is some left-sided facial weakness which the patient identifies as old and related to a prior stroke but otherwise moving all four limbs without difficulty. DATA: LABORATORY DATA: Hemoglobin of 8.8 g/dL, white count of 3,900, platelets of 172,000. Sodium 143, potassium 4.5, chloride 107, bicarbonate 24, BUN 17, creatinine 4.96, glucose 115. Liver function tests are unremarkable, as is cholesterol panel. TSH is normal. UA shows 2+ protein but no active sediment. Chest x-ray and CT scan of brain are unremarkable. Review of the old record shows a baseline creatinine which is approximately 2.4 as of a visit in May 2016. ASSESSMENT AND PLAN: 1. [id number] renal failure unclear etiology though suspect dehydration. Will obtain fractional secretion of sodium, renal ultrasound. Continue IV fluids and monitor. Consider also progression of chronic kidney disease. Obtain Renal consultation with Yohan Townsend MD. 2. Diabetes. Manage with Accu-Cheks and sliding scale at this time. 3. Hypertension. 4. Increase activity with physical therapy, especially in light of reported difficulty with walking. 5. Prophylaxis with TEDS and SCDs. Dictated By: Adalberto Fernandez MD /maurice/renee /Document#: [id number]
--- NOTE | 2017-02-11 11:53 | DS ---
DATE OF ADMISSION: 02/04/2017 DATE OF DISCHARGE: 02/06/2017 DISCHARGE DIAGNOSES: 1. Progression of chronic kidney disease. 2. Hypertension. 3. Diabetes. 4. Generalized weakness, improved. HOSPITAL COURSE: Mr. Sorto presents to the emergency room at [facility] with generalized weakness and difficulty with walking. He was seen, evaluated and admitted to hospital. He was noted at the time of initial evaluation to have worsening of his creatinine from a baseline value of approximately 2.4 to a value of approximately 5.6. The patient improves somewhat with IV hydration and is seen in renal consultation by Dr. Yohan Townsend. Current feeling is that this represents of progression of chronic kidney disease, and Dr. Townsend recommends this be followed as an outpatient at this time. The patient is seen by physical therapy, and is worked with by them. Final determination of their recommendation for ongoing therapy remains pending at this time. However, if patient is cleared, he will be discharged to home today. If he is not cleared, we will attempt to locate penitentiary facility for him. DISCHARGE MEDICATIONS: The patient is asked to take the following new medicine: Norvasc 10 mg p.o. daily The patient is asked to continue the following medicines without changes. 1. Coreg 25 mg b.i.d. 2. Hydralazine 100 mg t.i.d. 3. 10, 5 mg daily. 4. Lovastatin 40 mg daily. 5. Phenergan p.r.n. DISCHARGE DIET: Low sodium recommended. DISCHARGE ACTIVITY: Increase in physical activity as tolerated. DISCHARGE FOLLOW UP: With Yohan Townsend in 1 to 2 weeks. DISCHARGE DISPOSITION: To be determined by final physical therapy, home versus SNF based on safety with ambulation and self care. SUGGESTIONS FOR FOLLOW-UP CARE: Follow creatinine and blood pressure, risk factor modify and begin dialysis as indicated. Dictated By: Adalberto Fernandez MD /maurice/ec /Document#: [id number]
== END 2017-02-06 18:29 | disposition home or self-care (01) | DRG 683 ==
LOC: E/R 12:07 → PP2 20:02
PROVIDERS: ADMIT Internal Medicine; ATTEND Internal Medicine
DX: I12.9 Hypertensive chronic kidney disease with stage 1 through stage 4 chronic kidney disease, or unspecified chronic kidney disease (principal); F20.0 Paranoid schizophrenia; E11.22 Type 2 diabetes mellitus with diabetic chronic kidney disease; N17.9 Acute kidney failure, unspecified; N18.4 Chronic kidney disease, stage 4 (severe); E87.5 Hyperkalemia; R51 Headache; R26.2 Difficulty in walking, not elsewhere classified; E78.5 Hyperlipidemia, unspecified; Z79.82 Long term (current) use of aspirin; Z86.73 Personal history of transient ischemic attack (TIA), and cerebral infarction without residual deficits
CPT/HCPCS: 36415; 70450; 71010; 76775; 80048; 80053; 80061; 81001; 81003; 82962; 83036; 83690; 83735; 84100; 84155; 84300; 84443; 84484; 85025; 93005; 97162; J1815; J7030

== ENCOUNTER 2017-10-16 13:07 | Inpatient (IN) | END 2017-10-22 19:40 | DRG 674 ==

== ENCOUNTER 2017-12-15 09:05 | Emergency (ER) | END 2017-12-15 11:14 | disposition home or self-care (01) ==

== ENCOUNTER 2018-02-04 19:18 | Observation (INO) | END 2018-02-07 00:13 | disposition home or self-care (01) ==

== ENCOUNTER 2018-02-27 03:19 | Emergency (ER) | END 2018-02-27 05:38 | disposition home or self-care (01) ==

== ENCOUNTER 2018-07-02 05:42 | Day surgery (SDC) | END 2018-07-05 09:03 | disposition home or self-care (01) ==